=== PATIENT | female | born 2000 | race African-American/Black ===

== ENCOUNTER 2021-12-03 14:45 | Emergency (ER) | payer OTHER ==
[~2021-12-03] VITALS: Ht 160 cm; Wt 114.5 kg
[2021-12-03] MEDS ORDERED: ONDANSETRON 4MG ORAL DISINTEGRATING TAB PO ONE (17:35)
[2021-12-03] MEDS ORDERED: KETOROLAC 60MG 2ML VIAL IM ONE (17:35)
[2021-12-03 18:06] LABS: BASO % 0.1 % (0.0-1.0); EOS # 0.1 10^3/uL (0.0-0.5); EOS % 1.2 % (0.0-3.0); LYMPH % 25.6 % (24.0-44.0); MEAN CORPUSCULAR HEMOGLOBIN 24.3 pg (27.0-33.0); MEAN CORPUSCULAR HGB CONC 32.5 g/dl (32.0-36.5); MEAN CORPUSCULAR VOLUME 74.9 fl (80.0-96.0); MONO # 0.7 10^3/uL (0.0-0.8); MONO % 9.6 % (2.0-8.0); NEUTROPHILS # 4.8 10^3/uL (1.5-8.5); NEUTROPHILS % 63.2 % (36.0-66.0); PLATELET COUNT, AUTOMATED 333 10^3/uL (150-450); RED BLOOD COUNT 5.34 10^6/uL (4.00-5.40); WHITE BLOOD COUNT 7.6 10^3/uL (4.0-10.0)
[2021-12-03 18:29] LABS: ERYTHROCYTE SEDIMENTATION RATE 46 mm/hr (0-20)
[2021-12-03 19:26] VITALS: BP 145/92
== END 2021-12-03 19:28 | disposition home or self-care (01) ==
LOC: M ED 14:45
DX: M25.511 Pain in right shoulder (principal); N64.4 Mastodynia
CPT/HCPCS: 84702; 85025; 85652; 86140; 96372; 99283; J1885

== ENCOUNTER 2022-07-12 17:49 | Emergency (ER) | payer OTHER ==
[~2022-07-12] VITALS: Ht 160 cm; Wt 115.6 kg
[2022-07-12] MEDS ORDERED: LOVE1INJ SC (19:55)
[2022-07-12] MEDS ORDERED: HYDR200T3 PO (19:58)
[2022-07-12] MEDS ORDERED: PREN1TAB11 PO (19:58)
[2022-07-12] MEDS ORDERED: METF-839 PO (19:58)
[2022-07-12] MEDS ORDERED: SYNT50TA PO (19:58)
[2022-07-12 20:11] LABS: BASO % 0.2 % (0.0-1.0); EOS # 0.1 10^3/uL (0.0-0.5); EOS % 0.8 % (0.0-3.0); HEMATOCRIT 38.2 % (36.0-47.0); HEMOGLOBIN 12.6 g/dl (12.0-15.5); LYMPH # 2.5 10^3/uL (1.5-5.0); LYMPH % 29.6 % (24.0-44.0); MEAN CORPUSCULAR VOLUME 75.6 fl (80.0-96.0); MONO # 0.7 10^3/uL (0.0-0.8); MONO % 8.4 % (2.0-8.0); NEUTROPHILS # 5.1 10^3/uL (1.5-8.5); NEUTROPHILS % 60.8 % (36.0-66.0); PLATELET COUNT, AUTOMATED 338 10^3/uL (150-450); RED BLOOD COUNT 5.05 10^6/uL (4.00-5.40); WHITE BLOOD COUNT 8.5 10^3/uL (4.0-10.0)
[2022-07-12 20:16] LABS: ERYTHROCYTE SEDIMENTATION RATE 54 mm/hr (0-20)
[2022-07-12 20:23] LABS: INR 0.91; PARTIAL THROMBOPLASTIN TIME 28.6 SECONDS (24.8-34.2); PROTHROMBIN TIME 12.4 SECONDS (12.5-14.5)
[2022-07-12] MEDS ORDERED: PRED10TA2 PO (20:59)
[2022-07-12] MEDS ORDERED: methylPREDNISolone 125MG 2ML VIAL IV ONE (21:00)
[2022-07-12] MEDS ORDERED: methylPREDNISolone 125MG 2ML VIAL IM ONE (21:10)
[2022-07-12 21:11] VITALS: BP 119/77
== END 2022-07-12 21:24 | disposition home or self-care (01) ==
LOC: M ED 17:49
DX: M79.662 Pain in left lower leg (principal); M35.00 Sjogren syndrome, unspecified; M32.9 Systemic lupus erythematosus, unspecified; Z79.84 Long term (current) use of oral hypoglycemic drugs; Z79.899 Other long term (current) drug therapy
CPT/HCPCS: 36415; 80047; 83605; 85025; 85610; 85652; 85730; 86140; 93971; 96372; 96374; 99283; J2930